=== PATIENT | female | born 1980 | race Caucasian/White ===

== ENCOUNTER 2020-01-17 04:33 | Emergency (ER) | payer SELFPAY ==
[~2020-01-17] VITALS: Ht 175.3 cm; Wt 83.9 kg
[2020-01-17 05:20] VITALS: BP 140/85
[2020-01-17] MEDS ORDERED: PENICILLIN G BENZATHINE 2.4 MMU/4 ML ML IM ONE ×2 (05:47→06:00)
== END 2020-01-17 06:00 | disposition home or self-care (01) ==
LOC: ER 04:33
DX: A53.9 Syphilis, unspecified (principal)
CPT/HCPCS: 96372; 99283; J0558

== ENCOUNTER 2020-10-19 18:30 | Emergency (ER) | payer MEDICARE ==
[~2020-10-19] VITALS: Ht 175.3 cm; Wt 81.6 kg
[2020-10-19 21:31] VITALS: BP 141/88
--- NOTE | 2020-10-19 21:35 | NUR ---
pt bibself for vaginal itchiness and redness. Pt aaox 4 breathing evenly and unlabored. Pt ambulated to bed 16
[2020-10-19] MEDS ORDERED: PENICILLIN G BENZATHINE 2.4 MMU/4 ML ML IM ONE ×2 (22:30→23:00)
[2020-10-19 22:48] LABS: BILIRUBIN,URINE Negative (NEGATIVE); COLOR,URINE YELLOW (YELLOW); LEUKOCYTE ESTERASE ,URINE Negative (NEGATIVE); NITRITE, URINE Negative (NEGATIVE); PROTEIN,URINE Negative (NEGATIVE); UGLUCOSE Negative (NEGATIVE)
--- NOTE | 2020-10-19 23:15 | NUR ---
Patient discharged to home in stable condition. Written and verbal after care instructions given. Patient verbalizes understanding of instruction.Pt ambulatory with a steady gait
[2020-10-19 23:36] LABS: BACTERIA,URINE Rare /HPF (None Seen); SQUAMOUS EPITHELIAL CELL,UR Few /HPF (None Seen); WBC,URINE NONE SEEN /HPF (0-3)
== END 2020-10-19 23:15 | disposition home or self-care (01) ==
LOC: ER 18:36
DX: Z00.8 Encounter for other general examination (principal); R21 Rash and other nonspecific skin eruption; Z60.2 Problems related to living alone
CPT/HCPCS: 81001; 84703; 96372; 99283; J0558